=== PATIENT | female | born 1950 | race Caucasian/White ===

== ENCOUNTER 2017-09-21 17:48 | Inpatient (IN) ==
[2017-09-21 17:56] VITALS: BMI 32.3
[2017-09-21] MEDS ORDERED: NS 1000 ML 1,000 ML ONE (18:25)
--- NOTE | 2017-09-21 18:33 | DR.GENAD ---
HPI - PCP Primary Care Physician: DANIEL - Complaint/Symptoms Chief Complaint Doctors Comments: Patient was called by her primary care physician and was advised to go the ER because she had hyponatremia. Her sodium was 123. Patient admits to having low sodium in the past. She thinks it because she drinks lots of soda. Chief Complaint:: PT. STATES SHE WENT TO PCP OFFICE THIS MORNING AND HAD LAB WORK DONE AND THEY CALLED HER AND TOLD HER THAT HER ELECTROLYTES WERE ABNORMAL AND SHE NEEDED TO COME RECEIVE IF FLUIDS. PT. STATES HER SODIUM WAS 125. PT. STATES SHE HAS BEEN SICK FOR A FEW WEEKS AND HAS BEEN TO HER PCP SEVERAL TIMES. - Source History Provided: Patient - Mode of Arrival Mode of Arrival: Ambulatory - Timing Onset of Chief Complaint: 09/21/17 PMH - PMH Past Medical History: Yes Past Medical History: GERD, Hypertension Past Surgical History: Yes Surgical History: Cholecystectomy, Hysterectomy, Ortho Surgery - Family History History of Family Medical Conditions: No - Social History Does patient currently use any type of tobacco product: No Have you used tobacco products in the last 12 months: No Type of Tobacco Use: None Does any household member use tobacco: No Alcohol Use: None Do you use any recreational Drugs:: No Lives With: Spouse Lives Where: Home - infectious screening In the last 2 months have you had wt loss of >10#?: NO Have you had fever, night sweats or hemotysis?: No Have you traveled outside the country in the last 6 months?: No Isolation: Standard ROS - Review of Systems Eyes: No Symptoms Reported ENTM: No Symptoms Reported Respiratoy: No Symptoms Reported Cardiovascular: No Symptoms Reported Gastrointestinal/Abdominal: No Symptoms Reported Genitourinary: No Symptoms Reported Neurological: No Symptoms Reported Musculoskeletal: No Symptoms Reported Integumentary: No Symptoms Reported Hematologic/Lymphatic: No Symptoms Reported Endocrine: No Symptoms Reported Psychiatric: No Symptoms Reported All Other Systems: Reviewed and Negative PE - General Limitations: No Limitations General Appearance: Alert, In No Apparent Distress - Head Head Exam: Normal Inspection - Eyes Eye exam: Normal Appearance, PERRL, EOMI - ENT ENT Exam: Normal Exam External Ear Exam: Normal External Inspection TM/Canal Exam: Bilateral Normal Nose Exam: Normal Nose Exam Mouth Exam: Normal Inspection Throat Exam: Normal Inspection - Neck Neck Exam: Normal Inspection - Chest Chest Inspection: Normal Inspection, Symmetric Chest Wall Rise - Respiratory Respiratory Exam: Normal Lung Sounds Bilat Respiratory Exam: Bilateral Clear to Auscultation - Cardiovascular Cardiovascular Exam: Regular Rate, Normal Rhythm - Abdominal Exam Abdominal Exam: Normal Inspection, Normal Bowel Sounds Abdominal Tenderness: negative: RUQ, RLQ, LUQ, LLQ, Epigastrium, Suprapubic, Diffuse, Mild, Moderate, Severe, Other - Extremities Extremities Exam: Normal Inspection, Full ROM - Back Back Exam: Normal Inspection, Full ROM - Neurologic Neurological Exam: Alert, Oriented X3, CN II-XII Intact - Psychiatric Psychiatric Exam: Normal Affect, Normal Mood - Skin Skin Exam: Warm, Dry, Intact - Vital Signs Vitals: Temperature 98 F Pulse Rate [Apical] 60 Pulse Rate 61 Respiratory Rate 18 Blood Pressure [Left Arm] 168/73 Blood Pressure 177/89 O2 Sat by Pulse Oximetry 100 Course - Reevaluation 1st: Unchanged - Consultation Called: 19:25 (Dr Corea returned called advised to admit for further treatment) ROR - Labs Reviewed Result Diagrams: 09/21/17 18:22 09/21/17 18: - Labs Reviewed Laboratory: WBC 9.3 X10^3/uL (3.6-10.0) 09/21/17 18: RBC 3.66 X10^6/uL (3.5-5.4) 09/21/17 18: Hgb 12.3 g/dL (12.0-16.0) 09/21/17 18: Hct 35.7 % (36.0-47.0) L 09/21/17 18: MCV 97.7 fL (80.0-100.0) 09/21/17 18: MCH 33.6 pg (27.0-34.0) 09/21/17 18: MCHC 34.4 g/dL (33.0-35.0) 09/21/17 18: RDW 13.1 % (11.6-16.5) 09/21/17 18: Plt Count 319 X10^3/uL (150.0-450.0) 09/21/17 18: MPV 7.3 fL (7.4-11.0) L 09/21/17 18: Neut % (Auto) 71.2 % (42.0-75.0) 09/21/17 18: Lymph % (Auto) 21.1 % (21.0-51.0) 09/21/17 18:22 [place] % (Auto) 6.1 % (0.0-13.0) 09/21/17 18:22 Eos % (Auto) 0.6 % (0.9-2.9) L 09/21/17 18:22 Baso % (Auto) 1.0 % (0.2-1.0) 09/21/17 18:22 Neut # (Auto) 6.6 x10^3/uL (2.2-4.8) H 09/21/17 18:22 Lymph # (Auto) 2.0 X10^3/uL (1.3-2.9) 09/21/17 18:22 [place] # (Auto) 0.6 x10^3/uL (0.3-0.8) 09/21/17 18:22 Eos # (Auto) 0.1 x10^3/uL (0.0-0.2) 09/21/17 18:22 Baso # (Auto) 0.1 X10^3/uL (0.0-0.1) 09/21/17 18: Absolute Nucleated RBC 0.0 /100WBC 09/21/17 18: Absolute Retic 0.0431 10^6/uL 09/21/17 18: Percent Retic 1.18 % (0.8-2.2) 09/21/17 18:22 Sodium 123 mmol/L (136-145) L* 09/21/17 18: Corrected Sodium TNP 09/21/17 18: Potassium 4.5 mmol/L (3.5-5.1) 09/21/17 18: Chloride 87 mmol/L (98-107) L 09/21/17 18: Carbon Dioxide 25.1 mmol/L (21-32) 09/21/17 18: BUN 19 mg/dL (7-18) H 09/21/17 18: Creatinine 1.00 mg/dL (0.55-1.02) 09/21/17 18:22 Est GFR (MDRD) Af Amer > 60 (>60) 09/21/17 18:22 Est GFR (MDRD) Non-Af 59 (>60) 09/21/17 18:22 Glucose 99 mg/dL (65-99) 09/21/17 18:22 Calcium 8.9 mg/dL (8.5-10.1) 09/21/17 18: Corrected Calcium 9.5 mg/dL (8.5-10.1) 09/21/17 18: Total Bilirubin 0.30 mg/dL (0.2-1.0) 09/21/17 18: AST 18 Units/L (15-37) 09/21/17 18:22 ALT 22 Units/L (12-78) 09/21/17 18:22 Alkaline Phosphatase 112 Units/L (46-116) 09/21/17 18: Total Protein 7.5 g/dL (6.4-8.2) 09/21/17 18: Albumin 3.3 g/dL (3.4-5.0) L 09/21/17 18: Globulin 4.2 g/dL (2.5-4.5) 09/21/17 18: Albumin/Globulin Ratio 0.8 Ratio (1.1-2.1) L 09/21/17 18:22 - Diagnosis Discharge Problem: Hyponatremia, Hypoalbuminemia - Discharge Plan Disposition: ADMITTED INPATIENT - Follow ups/Referrals Follow ups/Referrals: JANET SANCHEZ [Primary Care Provider] - 3 days - Instructions
[2017-09-21 18:40] LABS: BASOPHILS # (AUTO) 0.1 X10^3/uL (0.0-0.1); EOSINOPHILS # (AUTO) 0.1 x10^3/uL (0.0-0.2); EOSINOPHILS % (AUTO) 0.6 % (0.9-2.9); HEMATOCRIT 35.7 % (36.0-47.0); HEMOGLOBIN 12.3 g/dL (12.0-16.0); LYMPHOCYTES % (AUTO) 21.1 % (21.0-51.0); MEAN CORPUSCULAR HEMOGLOBIN 33.6 pg (27.0-34.0); MEAN CORPUSCULAR HGB CONC 34.4 g/dL (33.0-35.0); MEAN CORPUSCULAR VOLUME 97.7 fL (80.0-100.0); MEAN PLATELET VOLUME 7.3 fL (7.4-11.0); MONOCYTES # (AUTO) 0.6 x10^3/uL (0.3-0.8); MONOCYTES % (AUTO) 6.1 % (0.0-13.0); NEUTROPHILS # (AUTO) 6.6 x10^3/uL (2.2-4.8); NEUTROPHILS % (AUTO) 71.2 % (42.0-75.0); PLATELET COUNT 319 X10^3/uL (150.0-450.0); RED BLOOD COUNT 3.66 X10^6/uL (3.5-5.4); RED CELL DISTRIBUTION WIDTH 13.1 % (11.6-16.5); WHITE BLOOD COUNT 9.3 X10^3/uL (3.6-10.0)
[2017-09-21 18:48] LABS: BLOOD UREA NITROGEN 19 mg/dL (7-18); CALCIUM 8.9 mg/dL (8.5-10.1); CARBON DIOXIDE 25.1 mmol/L (21-32); CHLORIDE 87 mmol/L (98-107); eGFR NON BLACK RACES 59 (>60)
[2017-09-21 18:53] LABS: ALANINE AMINOTRANSFERASE 22 Units/L (12-78); ALBUMIN 3.3 g/dL (3.4-5.0); ALKALINE PHOSPHATASE 112 Units/L (46-116); ASPARTATE AMINO TRANSFERASE 18 Units/L (15-37); COR CA(FOR HYPOALB) 9.5 mg/dL (8.5-10.1); TOTAL PROTEIN 7.5 g/dL (6.4-8.2)
[2017-09-21 18:57] LABS: SODIUM 123 mmol/L (136-145)
[2017-09-21] MEDS ORDERED: NS 1000 ML 1,000 ML IV SCH (19:00)
[2017-09-21 19:08] LABS: RETICULOCYTE % 1.18 % (0.8-2.2)
[2017-09-21] MEDS ORDERED: ZOFRAN INJ 4 MG VIAL IVP PRN (20:38)
[2017-09-21] MEDS ORDERED: PATIENT'S HOME MEDICATION (Alprazolam [Alprazolam] 1 TAB) PO PRN (20:39)
[2017-09-21] MEDS ORDERED: ESOMEPRAZOLE MAGNESIUM 20 MG PO SCH (20:45)
[2017-09-21] MEDS: SODIUM CHL HYPERTONIC ** 3% ** 500 ML IV NR ×2 (21:00)
[2017-09-21] MEDS: NORVASC TAB 5 MG PO SCH (22:00)
[2017-09-21] MEDS: LYRICA CAP 75 MG PO SCH (22:00)
[2017-09-21] MEDS: TOPROL XL PO SCH (22:00)
[2017-09-21 22:05] LABS: BILIRUBIN,URINE NEGATIVE (NEGATIVE); BLOOD/HEMOGLOBIN,URINE NEGATIVE (NEGATIVE); GLUCOSE, URINE NEGATIVE (NEGATIVE); KETONES,URINE NEGATIVE (NEGATIVE); LEUKOCYTE ESTERASE ,URINE NEGATIVE (NEGATIVE); NITRITES,URINE NEGATIVE (NEGATIVE); PROTEIN,URINE NEGATIVE (NEGATIVE); UROBILINOGEN,URINE NORMAL (NORMAL)
[2017-09-21 22:07] LABS: APPEARANCE,URINE CLEAR (CLEAR); COLOR,URINE PALE YELLOW (YELLOW)
[2017-09-21] MEDS ORDERED: XANAX PO PRN (23:34)
[2017-09-22] MEDS: DICLOFENAC SUBMICRONIZED 18 MG PO SCH ×2 (00:15→06:22)
[2017-09-22 04:02] LABS: BLOOD UREA NITROGEN 18 mg/dL (7-18); CALCIUM 8.2 mg/dL (8.5-10.1); CARBON DIOXIDE 25.7 mmol/L (21-32); CHLORIDE 94 mmol/L (98-107); COR NA(FOR HYPERGLY) 127 mmol/L (136-145); SODIUM 127 mmol/L (136-145); eGFR NON BLACK RACES 59 (>60)
[2017-09-22] MEDS: LYRICA CAP 75 MG PO SCH ×3 (06:26→21:45)
--- NOTE | 2017-09-22 06:50 | RAD ---
HISTORY: Hyponatremia Study: Chest AP Comparison: None Findings: The heart is within normal limits in size. The naldo are normal. The lungs are well inflated and clear . No pleural effusions are identified. The bony thorax is unremarkable. IMPRESSION: Lungs clear Reported By:
[2017-09-22] MEDS: COZAAR PO SCH (08:41)
[2017-09-22] MEDS: EFFEXOR XR 75 MG CAP PO SCH (08:42)
[2017-09-22] MEDS: NORVASC TAB 5 MG PO SCH ×2 (08:42→21:45)
[2017-09-22] MEDS: PREMARIN PO SCH (08:43)
[2017-09-22] MEDS: PriLOSEC PO SCH (08:44)
[2017-09-22] MEDS: TOPROL XL PO SCH ×2 (08:44→21:45)
[2017-09-22 08:45] LABS: BLOOD UREA NITROGEN 15 mg/dL (7-18); CALCIUM 8.2 mg/dL (8.5-10.1); CARBON DIOXIDE 30.5 mmol/L (21-32); CHLORIDE 98 mmol/L (98-107); CREATININE 0.83 mg/dL (0.55-1.02); SODIUM 133 mmol/L (136-145); eGFR NON BLACK RACES > 60 (>60)
[2017-09-22] MEDS ORDERED: EFFEXOR TAB 75 MG (BID DOSING) PO SCH (09:00)
[2017-09-22] MEDS ORDERED: LOSARTAN PO SCH (09:00)
[2017-09-22] MEDS ORDERED: MAXZIDE 37.5/25 MG PO SCH (09:00)
[2017-09-22 11:17] LABS: BLOOD UREA NITROGEN 15 mg/dL (7-18); CALCIUM 8.8 mg/dL (8.5-10.1); CARBON DIOXIDE 30.5 mmol/L (21-32); CHLORIDE 98 mmol/L (98-107); CREATININE 1.01 mg/dL (0.55-1.02); SODIUM 133 mmol/L (136-145); eGFR NON BLACK RACES 58 (>60)
[2017-09-22] MEDS: MOBIC TAB 15 MG PO SCH (12:20)
[2017-09-22] MEDS ORDERED: ZANAFLEX PO PRN (12:49)
--- NOTE | 2017-09-22 12:56 | DR.H&P ---
H&P - History & Physical for Day of: H&P Date: 09/21/17 - Chief Complaint Chief Complaint: weakness - History of Present Illness History of Present Illness: 66 WF ER ADMISSION AFTER PRESENTING WITH CO WEAKNESS , FATIGUE, "JUST DONT FEEL RIGHT". PT STATES SHE WAS SEEN BY HER PCP DR ADAM IN [place] FOR LABS. PT CO FEELING BAD. PT WAS HYPONATREMIC ON ADMISSION LABS AND STRATED ON HYPERTONIC SOLUTION IN THE ER. PT HAS PMH OF HTN, OA, RA, [place], AND GERD. PT ADMITTED FOR FURTHER HYDRATION. - Past Medical History Past Medical History: GERD, Hypertension - Past Surgical History Surgical History: Cholecystectomy, Hysterectomy, Ortho Surgery - Social History Does patient currently use any type of tobacco product: No Have you used tobacco products in the last 12 months: No Type of Tobacco Use: None Does any household member use tobacco: No Alcohol Use: None Drug Use: None - Medications Home Medications: iodine Allergy (Verified 09/21/17 17:56) CONTINUE taking the following medications acyclovir 400 mg PO BID PRN 09/21/17 [History] alprazolam 1 tab PO TID PRN 09/21/17 [History] amlodipine 5 mg PO BID 09/21/17 [History] txozpxptcn-[id number] 1 tab PO Q6H PRN 09/21/17 [History] conjugated estrogens [Premarin] 1 tab PO DAILY 09/21/17 [History] diclofenac submicronized [Zorvolex] 18 mg PO TID 09/21/17 [History] esomeprazole magnesium [Nexium 24HR] 20 mg PO ONCE 09/21/17 [History] hydrocodone-acetaminophen 1 tab PO Q6H 09/21/17 [History] losartan 1 tab PO DAILY 09/21/17 [History] metoprolol succinate 50 mg PO BID 09/21/17 [History] montelukast 1 tab PO DAILY 09/21/17 [History] pregabalin [Lyrica] 75 mg PO TID 09/21/17 [History] tizanidine 1 tab PO TID PRN 09/21/17 [History] triamterene-hydrochlorothiazid 1 cap PO QAM 09/21/17 [History] venlafaxine 1 tab PO DAILY 09/21/17 [History] - Review of Systems Constitutional: Weakness, Malaise Eyes: No Symptoms Reported ENT: No Symptoms Reported Respiratory: No Symptoms Reported Gastrointestinal: Nausea Genitourinary: No Symptoms Reported Musculoskeletal: Shoulder Pain, Arm Pain, Back Pain, Leg Pain, Neck Pain Skin: No Symptoms Reported Neurological: Weakness. denies: Confusion - Physical Exam Vital Signs: Temperature 97.8 F Pulse Rate [Apical] 63 Pulse Rate 61 Respiratory Rate 18 Blood Pressure [Left Arm] 130/61 Blood Pressure 177/89 O2 Sat by Pulse Oximetry 98 Oriented: Normal Eyes: Normal Ear: Normal Nose: Normal Throat: Normal Respiratory: RLL Diminished, LLL Diminished Cardiovascular: Normal, Edema (BILATERAL LOWER EXTREMITY TRACE EDEMA) : Normal Auscultation: Bowel Sounds: Normal Palpation: Normal Tenderness: Normal Skin: Decreased Turgur Musculoskeletal: Right, Left, Knee, Back:Thoracic, Back:Lumbar, Crepitance Psychiatric: Depression Affect: Anxious Speech Pattern: Clear, Appropriate - Assessment/Plan (1) Dehydration with hyponatremia Status: Acute Plan: ADMIT, GENTLE HYDRATION, AM CXR. REPEAT AM CMP, BP CONTROL. VERIFY RESUME HOME MEDS. D/C PO DIURETIC (2) Dehydration Status: Acute (3) Hypoalbuminemia Status: Acute Plan: REGULAR DIET, PROMOD - Allergies Allergies/Adverse Reactions: Allergies Allergy/AdvReac Type Severity Reaction Status Date / Time iodine Allergy Verified 09/21/17 17:56
--- NOTE | 2017-09-22 13:17 | PCM.PROG ---
Progress Note - Progress Note for Day of Date: 09/22/17 - Subjective Subjective: 66 WF ER ADMISSION WITH DEHYDRATION AND HYPONATREMIA, IMPROVING SODIUM 133 THIS AM. CONTINUES WITH CO MUSCLE CRAMPING AND FATIGUE. CONTINUE HOME PAIN CONTROL FOR RA. BP MONITORING - Past Medical Family Social History Past Med/Fam/Surg Hx: No changes since H&P Allergies: Allergies iodine Allergy (Verified 09/21/17 17:56) - Review of Systems ROS: No change since H&P - Vital Signs and I&O's Vital Signs: Temperature 97.8 F Pulse Rate [Apical] 63 Pulse Rate 61 Respiratory Rate 18 Blood Pressure [Left Arm] 130/61 Blood Pressure 177/89 O2 Sat by Pulse Oximetry 98 Intake and Output: Intake & Output 09/20/17 09/21/17 09/22/17 09/23/17 11:59 11:59 11:59 11:59 Intake Total 680 / 680 Balance 680 / 680 - Physical Exam Oriented: Normal Eyes: Normal Ear: Normal Nose: Normal Throat: Normal Respiratory: Normal Cardiovascular: Normal, Edema (BILATERAL LOWER EXTREMITY TRACE EDEMA) : Normal Auscultation: Bowel Sounds: Normal Tenderness: Normal Skin: Decreased Turgur Musculoskeletal: Right, Left, Knee, Back:Thoracic, Back:Lumbar, Crepitance Psychiatric: Depression Affect: Anxious Speech Pattern: Clear, Appropriate - Laboratory and Diagnostics Result Diagrams: 09/21/17 18:22 09/22/17 10:58 Labs: Laboratory WBC 9.3 X10^3/uL (3.6-10.0) 09/21/17 18: RBC 3.66 X10^6/uL (3.5-5.4) 09/21/17 18: Hgb 12.3 g/dL (12.0-16.0) 09/21/17 18: Hct 35.7 % (36.0-47.0) L 09/21/17 18: MCV 97.7 fL (80.0-100.0) 09/21/17 18: MCH 33.6 pg (27.0-34.0) 09/21/17 18: MCHC 34.4 g/dL (33.0-35.0) 09/21/17 18: RDW 13.1 % (11.6-16.5) 09/21/17 18: Plt Count 319 X10^3/uL (150.0-450.0) 09/21/17 18: MPV 7.3 fL (7.4-11.0) L 09/21/17 18: Neut % (Auto) 71.2 % (42.0-75.0) 09/21/17 18: Lymph % (Auto) 21.1 % (21.0-51.0) 09/21/17 18: [place] % (Auto) 6.1 % (0.0-13.0) 09/21/17 18: Eos % (Auto) 0.6 % (0.9-2.9) L 09/21/17 18: Baso % (Auto) 1.0 % (0.2-1.0) 09/21/17 18: Neut # (Auto) 6.6 x10^3/uL (2.2-4.8) H 09/21/17 18: Lymph # (Auto) 2.0 X10^3/uL (1.3-2.9) 09/21/17 18:22 [place] # (Auto) 0.6 x10^3/uL (0.3-0.8) 09/21/17 18: Eos # (Auto) 0.1 x10^3/uL (0.0-0.2) 09/21/17 18: Baso # (Auto) 0.1 X10^3/uL (0.0-0.1) 09/21/17 18: Absolute Nucleated RBC 0.0 /100WBC 09/21/17 18: Absolute Retic 0.0431 10^6/uL 09/21/17 18: Percent Retic 1.18 % (0.8-2.2) 09/21/17 18: Sodium 133 mmol/L (136-145) L 09/22/17 10:58 Corrected Sodium TNP 09/22/17 10:58 Potassium 4.0 mmol/L (3.5-5.1) 09/22/17 10:58 Chloride 98 mmol/L (98-107) 09/22/17 10:58 Carbon Dioxide 30.5 mmol/L (21-32) 09/22/17 10:58 BUN 15 mg/dL (7-18) 09/22/17 10:58 Creatinine 1.01 mg/dL (0.55-1.02) 09/22/17 10:58 Est GFR (MDRD) Af Amer > 60 (>60) 09/22/17 10:58 Est GFR (MDRD) Non-Af 58 (>60) L 09/22/17 10:58 Glucose 79 mg/dL (65-99) 09/22/17 10:58 Calcium 8.8 mg/dL (8.5-10.1) 09/22/17 10:58 Corrected Calcium 9.5 mg/dL (8.5-10.1) 09/21/17 18:22 Total Bilirubin 0.30 mg/dL (0.2-1.0) 09/21/17 18:22 AST 18 Units/L (15-37) 09/21/17 18:22 ALT 22 Units/L (12-78) 09/21/17 18:22 Alkaline Phosphatase 112 Units/L (46-116) 09/21/17 18:22 Total Protein 7.5 g/dL (6.4-8.2) 09/21/17 18:22 Albumin 3.3 g/dL (3.4-5.0) L 09/21/17 18:22 Globulin 4.2 g/dL (2.5-4.5) 09/21/17 18:22 Albumin/Globulin Ratio 0.8 Ratio (1.1-2.1) L 09/21/17 18:22 Specimen Type Clean catch urine 09/21/17 21:09 Urine Color Pale yellow (YELLOW) 09/21/17 21:09 Urine Appearance Clear (CLEAR) 09/21/17 21:09 Urine pH 6.0 (5.0 - 8.0) 09/21/17 21:09 Ur Specific [place] 1.010 (1.000-1.030) 09/21/17 21:09 Urine Protein Negative (NEGATIVE) 09/21/17 21: Urine Glucose (UA) Negative (NEGATIVE) 09/21/17 21: Urine Ketones Negative (NEGATIVE) 09/21/17 21:09 Urine Occult Blood Negative (NEGATIVE) 09/21/17 21: Urine Nitrite Negative (NEGATIVE) 09/21/17 21: Urine Bilirubin Negative (NEGATIVE) 09/21/17 21:09 Urine Urobilinogen Normal (NORMAL) 09/21/17 21:09 Ur Leukocyte Esterase Negative (NEGATIVE) 09/21/17 21:09 - Plan (1) Dehydration with hyponatremia Status: Acute Plan: GENTLE HYDRATION, CXR ORDERED FOR THIS AM. REPEAT AM CMP, BP CONTROL. VERIFY RESUME HOME MEDS. D/C PO DIURETIC (2) Dehydration Status: Acute (3) Hypoalbuminemia Status: Acute Plan: REGULAR DIET, PROMOD
[2017-09-22] MEDS: SINGULAIR TAB 10 MG PO SCH (14:40)
[2017-09-22 15:11] LABS: BLOOD UREA NITROGEN 15 mg/dL (7-18); CALCIUM 8.4 mg/dL (8.5-10.1); CARBON DIOXIDE 27.4 mmol/L (21-32); CHLORIDE 97 mmol/L (98-107); COR NA(FOR HYPERGLY) 133 mmol/L (136-145); CREATININE 1.03 mg/dL (0.55-1.02); SODIUM 132 mmol/L (136-145); eGFR NON BLACK RACES 57 (>60)
[2017-09-22] MEDS: NORCO 10/325 TAB PO PRN (21:45)
[2017-09-23] MEDS: NORCO 10/325 TAB PO PRN (06:21)
[2017-09-23] MEDS: LYRICA CAP 75 MG PO SCH ×2 (06:21→14:08)
[2017-09-23 06:56] LABS: BASOPHILS # (AUTO) 0.1 X10^3/uL (0.0-0.1); BASOPHILS % (AUTO) 0.9 % (0.2-1.0); EOSINOPHILS # (AUTO) 0.1 x10^3/uL (0.0-0.2); EOSINOPHILS % (AUTO) 1.2 % (0.9-2.9); HEMATOCRIT 35.1 % (36.0-47.0); HEMOGLOBIN 12.2 g/dL (12.0-16.0); LYMPHOCYTES # (AUTO) 2.1 X10^3/uL (1.3-2.9); LYMPHOCYTES % (AUTO) 31.3 % (21.0-51.0); MEAN CORPUSCULAR HGB CONC 34.8 g/dL (33.0-35.0); MEAN CORPUSCULAR VOLUME 97.8 fL (80.0-100.0); MEAN PLATELET VOLUME 7.5 fL (7.4-11.0); MONOCYTES # (AUTO) 0.5 x10^3/uL (0.3-0.8); NEUTROPHILS # (AUTO) 4.1 x10^3/uL (2.2-4.8); NEUTROPHILS % (AUTO) 59.6 % (42.0-75.0); PLATELET COUNT 274 X10^3/uL (150.0-450.0); RED BLOOD COUNT 3.59 X10^6/uL (3.5-5.4); RED CELL DISTRIBUTION WIDTH 13.6 % (11.6-16.5); WHITE BLOOD COUNT 6.8 X10^3/uL (3.6-10.0)
[2017-09-23 07:20] LABS: ALANINE AMINOTRANSFERASE 20 Units/L (12-78); ALKALINE PHOSPHATASE 110 Units/L (46-116); ASPARTATE AMINO TRANSFERASE 17 Units/L (15-37); BLOOD UREA NITROGEN 12 mg/dL (7-18); CALCIUM 8.9 mg/dL (8.5-10.1); CHLORIDE 96 mmol/L (98-107); COR CA(FOR HYPOALB) 9.7 mg/dL (8.5-10.1); CREATININE 0.77 mg/dL (0.55-1.02); SODIUM 131 mmol/L (136-145); eGFR NON BLACK RACES > 60 (>60)
[2017-09-23] MEDS: COZAAR PO SCH (08:28)
[2017-09-23] MEDS: EFFEXOR XR 75 MG CAP PO SCH (08:29)
[2017-09-23] MEDS: PriLOSEC PO SCH (08:29)
[2017-09-23] MEDS: TOPROL XL PO SCH (08:29)
[2017-09-23] MEDS: SINGULAIR TAB 10 MG PO SCH (08:29)
[2017-09-23] MEDS: PREMARIN PO SCH (08:30)
[2017-09-23] MEDS: MOBIC TAB 15 MG PO SCH (08:30)
[2017-09-23] MEDS: NORVASC TAB 5 MG PO SCH (10:13)
[2017-09-23 13:31] VITALS: BP 138/63
== END 2017-09-23 14:10 | disposition home or self-care (01) | DRG 641 ==
LOC: ER 17:52 → OBS 20:45
PROVIDERS: ADMIT Internal Medicine; ATTEND Internal Medicine
DX: E87.1 Hypo-osmolality and hyponatremia; I10 Essential (primary) hypertension; F32.89 Other specified depressive episodes; R53.1 Weakness; K21.9 Gastro-esophageal reflux disease without esophagitis; M06.89 Other specified rheumatoid arthritis, multiple sites; F41.8 Other specified anxiety disorders; E88.09 Other disorders of plasma-protein metabolism, not elsewhere classified; E86.0 Dehydration; M13.80 Other specified arthritis, unspecified site
CPT/HCPCS: 36415; 71010; 71045; 80048; 80053; 81003; 85025; 85045; 93005; 93010; 94760; 96365; 96367; 99283; 99284; A4216; A4222; J7030; J7131